=== PATIENT | male | born 1970 | race Hispanic/Latino ===

== ENCOUNTER 2024-10-29 22:01 | Emergency (ER) | payer MEDICAID ==
[~2024-10-29] VITALS: Ht 177.8 cm; Wt 129.3 kg
[2024-10-29 22:10] VITALS: PULSE 97; RESP 22; TEMP 99.4; O2SAT 100
[2024-10-29] MEDS ORDERED: DOXYCYCLINE HY100 MG PO (22:27)
[2024-10-29] MEDS ORDERED: BACTRIM DS TAB1 EACH PO (22:27)
== END 2024-10-29 22:45 | disposition home or self-care (01) ==
LOC: ER 22:24
DX: L72.3 Sebaceous cyst (principal)
CPT/HCPCS: 99283